=== PATIENT | male | born 1970 | race Caucasian/White ===

== ENCOUNTER 2021-02-08 12:39 | Emergency (ER) | payer SELFPAY ==
[~2021-02-08] VITALS: Ht 185.4 cm; Wt 80.0 kg
[2021-02-08 13:53] VITALS: BP 136/92
[2021-02-08] MEDS ORDERED: METOPROLOL SUC100 M1 PO (20:58)
== END 2021-02-08 13:54 | disposition home or self-care (01) ==
LOC: ED 12:39
DX: S06.0X9A Concussion with loss of consciousness of unspecified duration, initial encounter (principal); S05.12XA Contusion of eyeball and orbital tissues, left eye, initial encounter; I10 Essential (primary) hypertension; F17.210 Nicotine dependence, cigarettes, uncomplicated; W01.198A Fall on same level from slipping, tripping and stumbling with subsequent striking against other object, initial encounter; Y92.009 Unspecified place in unspecified non-institutional (private) residence as the place of occurrence of the external cause